=== PATIENT | female | born 1985 | race Caucasian/White ===

== ENCOUNTER 2025-07-08 07:11 | Inpatient (IN) | payer MEDICAID ==
[2025-07-06 13:28] LABS: Hematocrit 41.2 % (36.0-46.0); Hemoglobin 13.6 g/dL (12.2-16.2); Mean Corpuscular Hemoglobin 31.6 pg (28.0-32.0); Mean Corpuscular Volume 95.8 fL (80.0-100.0); Nucleated Red Blood Cells % 0.0 %
[2025-07-06 13:45] LABS: INR 1.01 (0.9-1.15); Partial Thromboplastin Time 24.8 SEC (24.5-34.5); Prothrombin Time 10.7 sec (9.3-11.8)
[2025-07-06 13:55] LABS: Alanine Aminotransferase 13 U/L (7-40); Alkaline Phosphatase 81 U/L (46-116); Anion Gap 8 (5-15); Calcium 8.9 mg/dL (8.7-10.4); Carbon Dioxide 28 mmol/L (20-31)
[2025-07-06 13:56] LABS: Chloride 109 mmol/L (98-107); Glucose 95 mg/dL (74-106); Potassium 3.1 mmol/L (3.5-5.1); Sodium 145 mmol/L (136-145)
[2025-07-06 13:57] LABS: BUN/Creatinine Ratio 10.8 (10.0-20.0); Total Protein 6.6 g/dL (5.7-8.2)
[2025-07-06 13:58] LABS: Albumin 4.2 g/dL (3.2-4.8); Blood Urea Nitrogen 7 mg/dL (9-23)
[2025-07-06 13:59] LABS: Bilirubin, Total 0.5 mg/dL (0.2-1.0)
[2025-07-06 14:04] LABS: Urine Protein, UAD TRACE (Negative)
[~2025-07-08] VITALS: Ht 160 cm; Wt 74.5 kg
[~2025-07-08 07:11] MED LIST: ACET-1304 PO
[2025-07-08] MEDS: LIDOCAINE W/ EPINEPHRINE 1% 20ML VIAL ONE (09:00)
[2025-07-08] MEDS ORDERED: fentaNYL CITRATE 100 MCG/2 ML VL ONE (09:04)
[2025-07-08] MEDS ORDERED: MEPERIDINE HCL (25 MG/ML) 1ML VIAL ONE (09:05)
[2025-07-08] MEDS ORDERED: ONDANSETRON HCL 4 MG/2 ML VIAL ONE (09:05)
[2025-07-08] MEDS ORDERED: ROCURONIUM 10MG/ML 10ML VIAL IV ONE (09:20)
[2025-07-08] MEDS: ceFAZolin 2 GM/D5W50ml 50 ML IV ONE (09:30)
[2025-07-08] MEDS: BUPIVACAINE HCL 0.25% P/F 10 ML VIAL ONE (09:45)
[2025-07-08] MEDS ORDERED: SUGAMMADEX 200mg/2ml Vial (100MG/ML) IV ONE (09:46)
[2025-07-08 09:58] VITALS: PULSE 100; RESP 16; O2SAT 96
[2025-07-08] MEDS ORDERED: MORPHINE SULFATE INJ 2 MG/ml SYRG IV PRN (10:15)
[2025-07-08] MEDS ORDERED: MEPERIDINE HCL (25 MG/ML) 1ML VIAL IV PRN (10:15)
[2025-07-08] MEDS ORDERED: METOCLOPRAMIDE HCL 5MG/ml INJ 2ml VIAL IV PRN (10:15)
[2025-07-08] MEDS ORDERED: ONDANSETRON HCL 4 MG/2 ML VIAL IV PRN (10:15)
[2025-07-08] MEDS ORDERED: NITROGLYCERIN 0.4 MG SL TAB SL PRN (10:15)
[2025-07-08] MEDS: ACETAMINOPHEN IV 1000 MG/100ML (10MG/ML) IV PRN (10:34)
--- NOTE | 2025-07-08 10:37 | DVHOP ---
DATE OF SURGERY: 07/08/2025 PREOPERATIVE DIAGNOSES: Cholelithiasis, cholecystitis. POSTOPERATIVE DIAGNOSES: Cholelithiasis, cholecystitis. SURGEON: Murphy Ann MD. HAY BUCKLER: Ricco Valentin NP. ANESTHESIA: General endotracheal. ANESTHESIOLOGIST: Dr. Crump. PROCEDURES: Laparoscopy, laparoscopic cholecystectomy DESCRIPTION OF PROCEDURE: Under general endotracheal anesthesia with the patient's skin prepped and draped, a supraumbilical incision was made and Veress needle inserted by the hanging drop technique in order to establish pneumoperitoneum to 15 mmHg pressure by insufflation with carbon dioxide. With the abdomen fully distended, the needle was removed and replaced with a 5 mm trocar port through which a 0-degree viewing laparoscope was inserted and under direct vision, 5 and 10 mm ports inserted through the right anterior axillary line at the level of the umbilicus and through the subxiphoid skin in the midline, respectively. Instrumentation was introduced. Laparoscopy was performed indicating no obvious unexpected pathology on the serosal surfaces visualized. The gallbladder was surrounded by adhesions. These were lysed so as to facilitate the dissection of the gallbladder. The gallbladder was placed on tension. The cystic duct and cystic artery were identified, circumferentially dissected, skeletonized, and traced into the hepatocystic triangle so as to minimize the potential for inadvertent injury to the common bile duct. The cystic duct and cystic artery were then divided between metallic clips away from the common bile duct to protect the common bile duct from inadvertent injury. Following division of these structures, the gallbladder was resected from its liver bed by electrocautery and traction and a fully mobilized gallbladder was removed from the peritoneal cavity by placement of an extraction bag, which was withdrawn from the peritoneal cavity through the 10 mm subxiphoid port site. Subsequently, the right upper quadrant was irrigated. Irrigant was aspirated. Hemostasis was meticulously inspected and found to be complete. At the termination of the procedure, there was no evidence of bleeding from either the port sites or from the liver bed of the gallbladder. Instrumentation was withdrawn. Pneumoperitoneum was evacuated. Closure was accomplished utilizing Monocryl sutures, Dermabond glue and Steri-Strips. The patient remained stable throughout the procedure, left the operating room following an accurate needle and sponge count. Her mother was thoroughly informed at [phone]. Murphy Ann MD PF/SHENG TID: [id number] RECEIPT: [id number]
[2025-07-08] MEDS: D5W/SOD CHL 0.45%/KCL 20MEQ 1,000 ML IV SCH (10:58)
[2025-07-08] MEDS: SUCCINYLCHOLINE CHLORIDE 20 MG/ML 10ML VIAL IV ONE (11:04)
[2025-07-08] MEDS: HYDROmorphone HCL 2 MG/ML VL/or syr IV PRN ×2 (11:13→14:55)
--- NOTE | 2025-07-08 11:58 | DVHHP2 ---
Review of Systems Allergies: Coded Allergies: NO KNOWN ALLERGIES (Unverified , 09/16/14) Medications Current Medications Medications Dose Ordered Sig/Kev Route Start Time Stop Time Status Last Admin Dose Admin Nitroglycerin 0.4 mg Q5MINP PRN SL 07/08/25 10:15 Morphine Sulfate 2 mg Q30M PRN IV 07/08/25 10:15 Potassium Chloride/Dextrose/ Sod Cl 1,000 ml @ 120 mls/hr Q8H20M IV 07/08/25 10:15 07/08/25 10:58 120 MLS/HR Hydromorphone HCl 1 mg Q3HPRN PRN IV 07/08/25 10:15 Acetaminophen/ Codeine Phosphate 1 tab Q4HP PRN PO 07/08/25 10:15 Pantoprazole Sodium 40 mg DAILY IV 07/09/25 10:00 Ondansetron HCl 4 mg Q4HPRN PRN IV 07/08/25 10:15 Cefazolin Sodium 50 ml @ 100 mls/hr Q8HR IV 07/08/25 17:00 Exam Vital Signs Vital Signs Date Time Temp Pulse Resp B/P (MAP) Pulse Ox O2 Delivery O2 Flow Rate FiO2 07/08/25 11:43 58 13 117/63 (81) 07/08/25 11:13 98 07/08/25 10:39 Nasal Cannula 1.5 96 07/08/25 09:58 97.8 97.8 Labs/Xrays Labs Test 07/06/25 12:00 Range/Units White Blood Count 7.8 4.4-10.8 10^3/uL Red Blood Count 4.30 4.0-5.20 10^6/uL Hemoglobin 13.6 12.2-16.2 g/dL Hematocrit 41.2 36.0-46.0 % Mean Corpuscular Volume 95.8 80.0-100.0 fL Mean Corpuscular Hemoglobin 31.6 28.0-32.0 pg Mean Corpuscular Hemoglobin Concent 33.0 32.0-36.0 g/dL Red Cell Distribution Width 13.7 11.8-14.3 % Platelet Count 280 140-450 10^3/uL Mean Platelet Volume 8.9 6.9-10.8 fL Neutrophils (%) (Auto) 76.5 37.0-80.0 % Lymphocytes (%) (Auto) 18.3 10.0-50.0 % Monocytes (%) (Auto) 4.4 0.0-12.0 % Eosinophils (%) (Auto) 0.5 0.0-7.0 % Basophils (%) (Auto) 0.3 0.0-2.0 % Neutrophils # (Auto) 6.0 1.6-8.6 10 ^3/uL Lymphocytes # (Auto) 1.4 0.4-5.4 10 ^3/uL Monocytes # (Auto) 0.3 0-1.3 10 ^3/uL Eosinophils # (Auto) 0 0-0.8 10 ^3/uL Basophils # (Auto) 0 0-0.2 10 ^3/uL Nucleated Red Blood Cells 0.0 % Prothrombin Time 10.7 9.3-11.8 sec Prothrombin Time INR 1.01 0.9-1.15 Activated Partial Thromboplast Time 24.8 24.5-34.5 SEC Urine Color Yellow Yellow Urine Clarity Turbid H Clear Urine pH 6.0 5.0-9.0 Urine Specific [place] 1.025 1.001-1.035 Urine Protein Trace H Negative Urine Ketones Negative Negative Urine Blood 1+ H Negative /uL Urine Nitrite Negative Negative Urine Bilirubin Negative Negative Urine Urobilinogen Normal Negative mg/dL Urine Leukocyte Esterase Negative Negative /uL Urine RBC 2 0 - 4 /hpf Urine Microscopic WBC 3 0-5 /HPF Urine Squamous Epithelial Cells Few <5 /hpf Urine Bacteria None seen None Seen /hpf Urine Mucus Few None Seen Urine Glucose Normal Normal mg/dL Urine Test Negative Negative Sodium Level 145 136-145 mmol/L Potassium Level 3.1 L 3.5-5.1 mmol/L Chloride Level 109 H 98-107 mmol/L Carbon Dioxide Level 28 20-31 mmol/L Anion Gap 8 5-15 Blood Urea Nitrogen 7 L 9-23 mg/dL Creatinine 0.65 0.550-1.02 mg/dL Glomerular Filtration Rate Calc 113 >90 mL/min BUN/Creatinine Ratio 10.8 10.0-20.0 Serum Glucose 95 74-106 mg/dL Calcium Level 8.9 8.7-10.4 mg/dL Total Bilirubin 0.5 0.2-1.0 mg/dL Aspartate Amino Transferase (AST) 16 13-40 U/L Alanine Aminotransferase (ALT) 13 7-40 U/L Alkaline Phosphatase 81 46-116 U/L Total Protein 6.6 5.7-8.2 g/dL Albumin 4.2 3.2-4.8 g/dL SEPSIS Sepsis Screen Physician Orders Emergency Veterinary Assistant (07/08/25 10:03) Notify Anesth. For Changes: (07/08/25 10:03) Discharge To Room Per Criteria (07/08/25 10:03) Admit (07/08/25 10:09) Nitroglycerin Sublingual (Ntrostat Subli (07/08/25 10:15) Morphine Sulfate Injection (07/08/25 10:15) Stat Ekg For Chest Pain (07/08/25 10:09) Notify Md Of Changes From Base (07/08/25 10:09) To Pacu For Recovery (07/08/25 10:12) Oxygen Via Cool Mist Mask (07/08/25 10:12) Abdominal Binder (07/08/25 10:12) Incentive Spirometry Q 1hr (07/08/25 10:12) Clear Liq Diet (07/08/25 Lunch) Sequential Compression Device (07/08/25 10:12) Ambulate Every 4hours Q4H (07/08/25 10:12) Bilirubin, Total (07/09/25 04:00) Page Hospitalist For Admission (07/08/25 10:12) D5w/Sod Chl 0.45%/Kcl 20meq (07/08/25 10:15) Hydromorphone Injection (Dilaudid Inject (07/08/25 10:15) Acetaminophen/Codeine Tablet (Tylenol W/ (07/08/25 10:15) Pantoprazole (Protonix) (07/09/25 10:00) Ondansetron Hcl (Zofran) (07/08/25 10:15) Cefazolin 1gm/50ml (Ancef) (07/08/25 17:00) Complete Blood Count (07/09/25 06:00) Comprehensive Metabolic Panel (07/09/25 06:00) Vital Signs Date Time Temp Pulse Resp B/P (MAP) Pulse Ox O2 Delivery O2 Flow Rate FiO2 07/08/25 11:43 58 13 117/63 (81) 07/08/25 11:13 64 13 117/61 (79) 98 07/08/25 11:13 64 13 117/61 07/08/25 10:43 56 12 119/65 (83) 95 07/08/25 10:39 Nasal Cannula 1.5 96 07/08/25 10:28 71 20 130/71 (90) 94 07/08/25 10:24 Room Air 0 99 07/08/25 10:13 71 20 141/66 (91) 99 07/08/25 10:10 Nasal Cannula 2.0 96 07/08/25 10:08 92 20 130/76 (94) 93 07/08/25 10:03 99 16 119/72 (88) 95 07/08/25 09:58 Room Air 0 96 07/08/25 09:58 100 16 96 Room Air 0 07/08/25 09:58 97.8 100 16 123/63 (83) 96 97.8 07/08/25 07:26 98.8 69 20 143/79 (100) 97 98.8 Medications Medications Dose Ordered Sig/Ekv Route Start Time Stop Time Status Last Admin Dose Admin Acetaminophen 1,000 mg [id number] PRN IV 07/08/25 10:15 07/08/25 10:20 DC 07/08/25 10:34 1,000 MG Cefazolin Sodium/ Dextrose 50 ml @ ud STK-MED ONCE IV 07/08/25 07:27 07/08/25 07:27 DC 07/08/25 09:30 Hydromorphone HCl 0.5 mg Q10M PRN IV 07/08/25 10:15 07/08/25 10:56 DC 07/08/25 11:13 0.5 MG Potassium Chloride/Dextrose/ Sod Cl 1,000 ml @ 120 mls/hr Q8H20M IV 07/08/25 10:15 07/08/25 10:58 120 MLS/HR Assessment/Plan Assessment/Plan SEE DICTATED NOTE Plan discussed with: Patient My Orders Orders - ANALISA FRAZIER MD Procedure Category Date Status Time Admit ADMIT 07/08/25 Transmitted 10:09 Nitroglycerin PHA 07/08/25 In Process Sublingual (Ntrostat 10:15 Morphine Sulfate PHA 07/08/25 In Process Injection 10:15 Stat Ekg For Chest ADEEL 07/08/25 In Process Pain 10:09 Notify Of Changes ADEEL 07/08/25 In Process From Base 10:09 Complete Blood Count LAB 07/09/25 Verified 06:00 Comprehensive LAB 07/09/25 Verified Metabolic Panel 06:00 Date of Service: Jul 08, 2025 Billing Provider: ANALISA FRAZIER MD Common Visit Codes: [id number] INP/OBS CARE (HIGH) ANALISA FRAZIER MD Jul 08, 2025 11:58
--- NOTE | 2025-07-08 12:06 | DVHHP ---
ADMIT DATE: 07/08/2025 HISTORY OF PRESENT ILLNESS: The patient is a 40-year-old lady who is admitted after she underwent laparoscopic cholecystectomy for cholelithiasis and chronic cholecystitis. The patient at this time complains of mild pain. No chest pain, no shortness of breath, no nausea or vomiting. REVIEW OF SYSTEMS: Review of rest of systems otherwise currently negative. PAST MEDICAL HISTORY: No significant illness in the past. MEDICATIONS: She takes no medications on a regular basis. ALLERGIES: No known drug allergies. SOCIAL HISTORY: She smokes marijuana. Denies cigarette or alcohol abuse. She lives at home with and children. FAMILY HISTORY: Negative. PHYSICAL EXAMINATION: GENERAL: The patient is awake, alert. VITAL SIGNS: Temperature of 97.8, pulse of 58 per minute, blood pressure 119/65. SHEENT: Unremarkable. NECK: There is no JVD. EXTREMITIES: No pedal edema. LUNGS: Lungs are equal bilaterally. No added sounds. CARDIOVASCULAR: S1 and S2 is regular. No murmurs. ABDOMEN: Soft. Bowel sounds are hypoactive. NEUROLOGIC: Nonfocal. MUSCULOSKELETAL: Normal. ASSESSMENT AND PLAN: * Obesity. * Status post laparoscopic cholecystectomy for cholelithiasis and chronic cholecystitis for which the patient will be placed on IV fluids along with pain medications. MD MICHELE Quijano/LILIAN TID: [id number] RECEIPT: [id number]
[2025-07-08] MEDS ORDERED: ceFAZolin 1GM/50ML 50 ML IV SCH (14:00)
[2025-07-08 14:11] VITALS: BP 105/66; PULSE 61; RESP 18; TEMP 97.9; O2SAT 96; O2SAT 98
[2025-07-08 17:00] VITALS: BP 126/84; PULSE 57; RESP 16; TEMP 97.6; O2SAT 98
[2025-07-08] MEDS: ceFAZolin 1GM/50ML 50 ML IV SCH (17:45)
[2025-07-08 20:00] VITALS: PULSE 90; RESP 18; O2SAT 98
[2025-07-08 21:09] VITALS: BP 110/64; PULSE 90; RESP 18; TEMP 97.9; O2SAT 98
[2025-07-08] MEDS: ONDANSETRON HCL 4 MG/2 ML VIAL IV PRN (21:12)
[2025-07-09 01:29] VITALS: BP 128/88; PULSE 50; RESP 18; TEMP 97.9; O2SAT 99
[2025-07-09] MEDS: ACETAMINOPHEN/CODEINE#3 (300/30mg) TAB PO PRN (03:44)
[2025-07-09 05:00] VITALS: BP 136/80; PULSE 48; RESP 16; TEMP 97.8; O2SAT 100
[2025-07-09 07:11] LABS: Hematocrit 40.3 % (36.0-46.0); Hemoglobin 13.3 g/dL (12.2-16.2); Mean Corpuscular Hemoglobin 31.6 pg (28.0-32.0); Mean Corpuscular Volume 95.6 fL (80.0-100.0); Nucleated Red Blood Cells % 0.0 %
[2025-07-09 07:35] LABS: Alanine Aminotransferase 21 U/L (7-40); Albumin 4.0 g/dL (3.2-4.8); Alkaline Phosphatase 73 U/L (46-116); Anion Gap 9 (5-15); Calcium 8.9 mg/dL (8.7-10.4); Carbon Dioxide 25 mmol/L (20-31); Potassium 3.7 mmol/L (3.5-5.1); Sodium 143 mmol/L (136-145); Total Protein 6.5 g/dL (5.7-8.2)
[2025-07-09 07:36] LABS: Bilirubin, Total 0.4 mg/dL (0.2-1.0)
[2025-07-09 07:38] LABS: BUN/Creatinine Ratio 8.5 (10.0-20.0); Blood Urea Nitrogen < 5 mg/dL (9-23); Chloride 109 mmol/L (98-107); Glucose 125 mg/dL (74-106)
[2025-07-09 08:00] VITALS: RESP 18
--- NOTE | 2025-07-09 08:31 | DVHPN2 ---
Subjective Date Seen: Jul 09, 2025 Post op day Post op day: 1 Patient reports: Feels better Nursing reports: No new complaints General: Normal HNT: Normal Cardiovascular: Normal Respiratory: Normal Gastrointestinal: Normal Genitourinary: Normal Musculoskeletal: Normal Neurological: Normal Objective Vitals Vital Sign Date Time Temp Pulse Resp B/P (MAP) Pulse Ox O2 Delivery O2 Flow Rate FiO2 07/09/25 05:00 97.8 48 16 136/80 (98) 100 97.8 07/08/25 20:00 Nasal Cannula* 2 28 Total Intake and Output 07/08/25 07/08/25 07/09/25 15:00 23:00 07:00 Intake Total 150 ml 50 ml 250 ml Balance 150 ml 50 ml 250 ml Medications Current Medications Medications Dose Ordered Sig/Kev Route Start Time Stop Time Status Last Admin Dose Admin Nitroglycerin 0.4 mg Q5MINP PRN SL 07/08/25 10:15 Morphine Sulfate 2 mg Q30M PRN IV 07/08/25 10:15 Potassium Chloride/Dextrose/ Sod Cl 1,000 ml @ 120 mls/hr Q8H20M IV 07/08/25 10:15 07/09/25 04:34 120 MLS/HR Hydromorphone HCl 1 mg Q3HPRN PRN IV 07/08/25 10:15 07/08/25 20:13 1 MG Acetaminophen/ Codeine Phosphate 1 tab Q4HP PRN PO 07/08/25 10:15 07/09/25 03:44 1 TAB Pantoprazole Sodium 40 mg DAILY IV 07/09/25 10:00 Ondansetron HCl 4 mg Q4HPRN PRN IV 07/08/25 10:15 07/08/25 21:12 4 MG Cefazolin Sodium 50 ml @ 100 mls/hr Q8HR IV 07/08/25 17:00 07/09/25 05:43 100 MLS/HR General: Normal, Well developed Head/Eyes: Normal ENT: Normal Neck: Normal Lungs: Normal, Normal inspection Cardiovascular: Normal, Regular rate and rhythm Abdominal: Normal, Soft Labs and Microbiology Laboratory Tests 07/09/25 06:39 Test 07/09/25 06:39 Range/Units Serum Glucose 125 H 74-106 mg/dL Ass/Plan Labs and/or images reviewed: Labs reviewed by me, Image(s) reviewed by me Assessment/Plan s/p laparoscopic cholecystectomy POD#1 labs and notes reviewed - Reports feeling very sick, nauseous, and extremely dizzy after receiving pain medication post-operatively. - The pain medication administered was Dilaudid 1 mg. The symptoms occurred after receiving the full dose - Nausea is reported only in association with the Dilaudid medication and is not present otherwise. - Reports some residual pain in the stomach, which is described as soreness. - Reports passing a small amount of gas, indicating the return of bowel activity. Has felt the urge to have a bowel movement but has been unable to do so yet. abdomen soft , non distended , appropriately tender right upper quadrant patient denies any nausea or dizziness patient expresses desire to go home today Plan: patient ok to to discharge per surgery point of view may shower in 72 hours advance diet as tolerated follow up in surgery clinic in 10-14 days Plan discussed with patient,Dr. Ann Visit Coding Surgery Date of Service if different f: Jul 09, 2025 Billing Provider: JACKSON ANN MD Surgery Visit Codes: [id number] INP/OBS CARE(HIGH) JONATHAN MOTA NP Jul 09, 2025 08:31
[2025-07-09 08:38] VITALS: BP 124/66; PULSE 53; RESP 18; TEMP 98.7; O2SAT 100
[2025-07-09] MEDS: PANTOPRAZOLE 40 MG/10 ML VIAL INJ IV SCH (09:06)
[2025-07-09] MEDS ORDERED: MORPHINE SULFATE INJ 2 MG/ml SYRG IV PRN (10:00)
--- NOTE | 2025-07-09 10:02 | DVHDS2 ---
Discharge Summary Date of Admission Jul 08, 2025 at 10:09 Date of Discharge: Jul 09, 2025 Labs/Diagnostic Data: Laboratory Results Test 07/09/25 06:39 07/06/25 12:00 White Blood Count 13.3 10^3/uL (4.4-10.8) Red Blood Count 4.22 10^6/uL (4.0-5.20) Hemoglobin 13.3 g/dL (12.2-16.2) Hematocrit 40.3 % (36.0-46.0) Mean Corpuscular Volume 95.6 fL (80.0-100.0) Mean Corpuscular Hemoglobin 31.6 pg (28.0-32.0) Mean Corpuscular Hemoglobin Concent 33.1 g/dL (32.0-36.0) Red Cell Distribution Width 13.5 % (11.8-14.3) Platelet Count 263 10^3/uL (140-450) Mean Platelet Volume 9.0 fL (6.9-10.8) Neutrophils (%) (Auto) 88.9 % (37.0-80.0) Lymphocytes (%) (Auto) 6.6 % (10.0-50.0) Monocytes (%) (Auto) 4.3 % (0.0-12.0) Eosinophils (%) (Auto) 0.0 % (0.0-7.0) Basophils (%) (Auto) 0.2 % (0.0-2.0) Neutrophils # (Auto) 11.9 10 ^3/uL (1.6-8.6) Lymphocytes # (Auto) 0.9 10 ^3/uL (0.4-5.4) Monocytes # (Auto) 0.6 10 ^3/uL (0-1.3) Eosinophils # (Auto) 0 10 ^3/uL (0-0.8) Basophils # (Auto) 0 10 ^3/uL (0-0.2) Nucleated Red Blood Cells 0.0 % Sodium Level 143 mmol/L (136-145) Potassium Level 3.7 mmol/L (3.5-5.1) Chloride Level 109 mmol/L (98-107) Carbon Dioxide Level 25 mmol/L (20-31) Anion Gap 9 (5-15) Blood Urea Nitrogen < 5 mg/dL (9-23) Creatinine 0.59 mg/dL (0.550-1.02) Glomerular Filtration Rate Calc 115 mL/min (>90) BUN/Creatinine Ratio 8.5 (10.0-20.0) Serum Glucose 125 mg/dL (74-106) Calcium Level 8.9 mg/dL (8.7-10.4) Total Bilirubin 0.4 mg/dL (0.2-1.0) Aspartate Amino Transferase (AST) 30 U/L (13-40) Alanine Aminotransferase (ALT) 21 U/L (7-40) Alkaline Phosphatase 73 U/L (46-116) Total Protein 6.5 g/dL (5.7-8.2) Albumin 4.0 g/dL (3.2-4.8) Prothrombin Time 10.7 sec (9.3-11.8) Prothrombin Time INR 1.01 (0.9-1.15) Activated Partial Thromboplast Time 24.8 SEC (24.5-34.5) Urine Color Yellow (Yellow) Urine Clarity Turbid (Clear) Urine pH 6.0 (5.0-9.0) Urine Specific [place] 1.025 (1.001-1.035) Urine Protein Trace (Negative) Urine Ketones Negative (Negative) Urine Blood 1+ /uL (Negative) Urine Nitrite Negative (Negative) Urine Bilirubin Negative (Negative) Urine Urobilinogen Normal mg/dL (Negative) Urine Leukocyte Esterase Negative /uL (Negative) Urine RBC 2 /hpf (0 - 4) Urine Microscopic WBC 3 /HPF (0-5) Urine Squamous Epithelial Cells Few /hpf (<5) Urine Bacteria None seen /hpf (None Seen) Urine Mucus Few (None Seen) Urine Glucose Normal mg/dL (Normal) Urine Test Negative (Negative) Other Laboratory Tests 07/09/25 06:39 Brief Hx & Hospital Course: SEE DICTATED NOTE Condition at Discharge: Good Final Diagnosis/Problems List LAP LONG Discharge Disposition: Home Discharge Instruct/Medications Diet: Regular Activity: No Restrictions, As Tolerated Follow Up/Referral: SCHEDULE APPT WITH DR JUAREZ IN 1 WK Medications: RESUME HOME MEDS SCRIPT TO PHARMACY DC AFTER LUNCH Scheduled Acetaminophen (Tylenol Extra Strength), 500 MG PO DAILY, (Reported) Discharge Statement: "Patient was advised to return to the ER or call 911 if any headaches, dizziness, shortness of breath, chest pain, abdominal pain, bleeding, fevers, or worsening of medical condition. Patient was counseled about treatment plan, medications, possible side effects, patientverbalized understanding. All questions were answered to the best of my ability. This discharge took greater then 30 minutes in planning, reviewing documentation, counseling the patient, and discussing with other team members." ASSESSMENT ASSESSMENT Assessment LETY ALVES Date of Service: Jul 09, 2025 Billing Provider: ANALISA FRAZIER MD Common Visit Codes: [id number] DISCH DAY >30min ANALISA FRAZIER MD Jul 09, 2025 10:02
[2025-07-09] MEDS ORDERED: CEPH500T PO (10:04)
[2025-07-09] MEDS ORDERED: TRAM-626 PO (10:04)
[2025-07-09] MEDS ORDERED: DOCU-94 PO (10:04)
--- NOTE | 2025-07-09 10:37 | DVHDS ---
DATE OF DISCHARGE: 07/09/2025 HISTORY OF PRESENT ILLNESS: The patient is a 40-year-old lady who is admitted after she underwent laparoscopic cholecystectomy for cholelithiasis and chronic cholecystitis. HOSPITAL COURSE: The patient did well postoperatively. The patient has been tolerating an oral diet. Liver function tests are within normal limits. The patient will be discharged after lunch to be on Keflex 500 mg t.i.d. for 7 days, tramadol p.r.n. for pain, and Colace p.r.n. for constipation. She will follow up with Dr. Ann in 1 week. FINAL DIAGNOSES: * Obesity. * Status post laparoscopic cholecystectomy for cholelithiasis and chronic cholecystitis. Time spent in discharge planning and review of plan with the patient and nursing was 37 minutes. MD MICHELE Quijano/SHENG TID: [id number] RECEIPT: [id number]
[2025-07-09 11:28] VITALS: TEMP 37.1
[2025-07-09 13:00] VITALS: BP 134/81; PULSE 50; RESP 17; TEMP 98.5; O2SAT 97
[2025-07-09] MEDS ORDERED: PROPOFOL 10 MG/ML 20 ML IV ONE (13:24)
== END 2025-07-09 14:12 | disposition home or self-care (01) | DRG 263 ==
LOC: SUR 07:11 → OVERFLOW 10:09 → CENTRAL 15:15
PROVIDERS: ADMIT Internal Medicine; ATTEND Internal Medicine
PROC: 0FT44ZZ Resection of Gallbladder, Percutaneous Endoscopic Approach (ICD-10-PCS; principal; 2025-07-08 09:10)
DX: K80.10 Calculus of gallbladder with chronic cholecystitis without obstruction (principal); E66.9 Obesity, unspecified; K59.00 Constipation, unspecified; K82.8 Other specified diseases of gallbladder; Z68.29 Body mass index [BMI] 29.0-29.9, adult; Z79.899 Other long term (current) drug therapy
CPT/HCPCS: 36415; 80053; 81001; 81025; 85025; 85610; 85730; 86850; 86900; 86901; G0378; J0131; J0330; J1100; J2405; J2470; J2704; J3490